=== PATIENT | male | born 1975 | race Two or more races ===

== ENCOUNTER 2018-06-10 08:54 | Emergency (ER) | payer BC ==
[2018-06-10] MEDS ORDERED: Sulfamethoxazole/Trimethoprim 800-160 MG Tab PO ONE (09:18)
[2018-06-10] MEDS ORDERED: Lidocaine 1% with EPINEPHrine 1:100,000 20 ML MDV INJECT ONE (09:18)
--- NOTE | 2018-06-10 09:24 | EDM.PDOC ---
ED HPI GENERAL MEDICAL PROBLEM - General Chief Complaint: Skin Complaint Stated Complaint: GROWTH ON THIGH Time Seen by Provider: 06/10/18 09:00 - History of Present Illness INITIAL COMMENTS - FREE TEXT/NARRATIVE: HISTORY AND PHYSICAL: History of present illness: The patient is a 43-year-old male with no stated medical problems who presents with complaints of a bump/growth to his left inner thigh that started about 7 days ago. He is not sure how it happened but he does admit that he does shave the hair and that area and he thought maybe he caused by shaving. He hasn't had any direct trauma to that area. He says that it is gradually increased in size and has become significantly more painful over the last 3 days. He has not noticed any drainage to the area and has no testicular pain or swelling no troubles with urination and no systemic complaints of fever chills chest pain shortness of breath abdominal pain vomiting or diarrhea. The patient says he has not manipulated the area or squeezed it. He also states to me that he has a history of having other lumpy fatty areas on his upper extremities and he was not sure what the more. He's concerned about the pain at the inner thigh is why he came in here. He is able to ambulate Review of systems: As per history of present illness and below otherwise all systems reviewed and negative. Past medical history: As per history of present illness and as reviewed below otherwise noncontributory. Surgical history: As per history of present illness and as reviewed below otherwise noncontributory. Social history: No reported history of drug or alcohol abuse. Family history: As per history of present illness and as reviewed below otherwise noncontributory. Physical exam: General: Well-developed well-nourished man who is nontoxic and vital signs were noted by me HEENT: Atraumatic, normocephalic, negative for conjunctival pallor or scleral icterus, mucous membranes moist, throat clear, neck supple, nontender, trachea midline. Lungs: Clear to auscultation, breath sounds equal bilaterally, chest nontender. Heart: S1S2, regular rate and rhythm no murmurs Abdomen: Soft, nondistended, nontender. Negative for masses or hepatosplenomegaly. NABS Pelvis: Stable nontender. Genitourinary: Testicles are descended bilaterally and there is no evidence of any erythema or swelling of the scrotal skin and there is no erythema or fluctuance or crepitance of the perineal area. At the left inner thigh there is a 3.5 x 3.5 area of hard induration with a central raised area of fluctuance that is 2 x 2.5 centimeter oval area. There is ill-defined erythema in this area that extends beyond the induration in the fluctuance down the inner thigh but it does not extend up into the perineum. There is only shoddy inguinal adenopathy. There is tenderness in this region but the compartment is soft and the patient can range of motion Rectal: Deferred. Extremities: Atraumatic, negative for cords or calf pain. Neurovascular unremarkable. On the patient's upper extremities there are several fatty lipomas appreciated that are mobile and exist in the subcutaneous tissue and are not tender not erythematous Neuro: Awake, alert, oriented. Cranial nerves II through XII unremarkable. Cerebellum unremarkable. Motor and sensory unremarkable throughout. Exam nonfocal. Diagnostics: None Therapeutics: Bactrim, lidocaine with epinephrine for incision and drainage Procedure note: After the procedure was explained to the patient the patient was positioned in the area was prepped and draped and 1% lidocaine with epinephrine was infused. Using a #11 blade an incision was made and thin pus mixed with blood emerged as well as some thicker pus with foul order. There was no loculations when the abscess cavity was probed with a hemostat and Iodoform gauze was packed into the wound ; the patient tolerated the procedure well with no complications. He is aware that he needs to return to have the gauze removed in 24-36 hours Impression: Left inner thigh abscess Definitive disposition and diagnosis as appropriate pending reevaluation and review of above. left inner thigh Pain Score (Numeric/FACES): 7 - Related Data Allergies Allergy/AdvReac Type Severity Reaction Status Date / Time Penicillins Allergy Severe Hives Verified 06/10/18 09:07 Home Meds: Home Meds . [No Known Home Meds] 08/22/13 [History] Past Medical History - Past Health History Medical/Surgical History: Denies Medical/Surgical History Musculoskeletal History: Reports: Other (See Below) Other Musculoskeletal History: ACL repair left side - Infectious Disease History Infectious Disease History: Reports: Chicken Pox Social & Family History - Family History Family Medical History: Noncontributory - Tobacco Use Smoking Status *Q: Light Tobacco Smoker Years of Tobacco use: 20 Packs/Tins Daily: 0.2 - Caffeine Use Caffeine Use: Reports: Coffee - Recreational Drug Use Recreational Drug Use: No ED ROS GENERAL - Review of Systems Review Of Systems: ROS reveals no pertinent complaints other than HPI. ED EXAM, SKIN/RASH Exam: See Below (See dictation) Course - Vital Signs Last Recorded V/S: Last Vital Signs Temp 36.2 C 06/10/18 09:00 Pulse 72 06/10/18 09:00 Resp 18 06/10/18 09:00 BP 133/75 06/10/18 09:00 Pulse Ox 98 06/10/18 09:00 - Orders/Labs/Meds Meds: Medications Discontinued Medications Generic Name Dose Route Start Last Admin Trade Name Norma PRN Reason Stop Dose Admin Lidocaine/Epinephrine 20 ml 06/10/18 09:18 06/10/18 09:25 Xylocaine 1% With Epinephrine 1:100,000 INJECT 06/10/18 09:19 20 ml ONETIME ONE Administration Trimethoprim/Sulfamethoxazole 1 tab 06/10/18 09:18 06/10/18 09:25 Septra Ds PO 06/10/18 09:19 1 tab ONETIME ONE Administration Departure - Departure Time of Disposition: 09:49 Disposition: Home, Self-Care 01 Condition: Good Clinical Impression: Abscess - Discharge Information Referrals: PCP,Unknown [Primary Care Provider] - Forms: ED Department Discharge Additional Instructions: The following information is given to patients seen in the emergency department who are being discharged to home. This information is to outline your options for follow-up care. We provide all patients seen in our emergency department with a follow-up referral. The need for follow-up, as well as the timing and circumstances, are variable depending upon the specifics of your emergency department visit. If you don't have a primary care physician on staff, we will provide you with a referral. We always advise you to contact your personal physician following an emergency department visit to inform them of the circumstance of the visit and for follow-up with them and/or the need for any referrals to a consulting specialist. The emergency department will also refer you to a specialist when appropriate. This referral assures that you have the opportunity for followup care with a specialist. All of these measure are taken in an effort to provide you with optimal care, which includes your followup. Under all circumstances we always encourage you to contact your private physician who remains a resource for coordinating your care. When calling for followup care, please make the office aware that this follow-up is from your recent emergency room visit. If for any reason you are refused follow-up, please contact the [facility] emergency department at and ask to speak to the emergency department charge nurse. [facility] Primary care- Internal Medicine and Family [address] [address] Take antibiotics as directed and use [id number] Tylenol or ibuprofen for pain and take the stronger pain medication as needed and as directed. Please return to ER in 24-36 hours to have iodoform pack removed and the wound reevaluated for repacking and further care. Please also schedule a follow-up appointment in our clinic for further care and evaluation. Please do not manipulate the area or remove the pack at home. Please take care not to pull the pack out accidentally. You have been given Bactrim and Tylenol with Codeine sent to [facility]
== END 2018-06-10 09:58 | disposition home or self-care (01) ==
LOC: MW.ED 08:54
DX: L02.416 Cutaneous abscess of left lower limb (principal); F17.210 Nicotine dependence, cigarettes, uncomplicated; Z88.0 Allergy status to penicillin
CPT/HCPCS: 10060; 99282; A9270

== ENCOUNTER 2018-06-11 10:42 | Emergency (ER) | payer BC ==
--- NOTE | 2018-06-11 11:11 | EDM.PDOC ---
ED HPI GENERAL MEDICAL PROBLEM - General Chief Complaint: Wound Recheck Stated Complaint: FOLLOW UP Time Seen by Provider: 06/11/18 10:50 - History of Present Illness INITIAL COMMENTS - FREE TEXT/NARRATIVE: HISTORY AND PHYSICAL: History of present illness: The patient is a healthy 43-year-old male who presents for recheck of an abscess that I drained yesterday. The patient says he is doing well and there has been drainage yesterday from the area but that has eased off. He is taking his antibiotics and feels that things are improving. Review of systems: As per history of present illness and below otherwise all systems reviewed and negative. Past medical history: As per history of present illness and as reviewed below otherwise noncontributory. Surgical history: As per history of present illness and as reviewed below otherwise noncontributory. Social history: No reported history of drug or alcohol abuse. Family history: As per history of present illness and as reviewed below otherwise noncontributory. Physical exam: HEENT: Atraumatic, normocephalic, negative for conjunctival pallor or scleral icterus, mucous membranes moist, throat clear, neck supple, nontender, trachea midline. Lungs: Deferred Cardiac deferred Abdomen: Soft, nondistended, nontender. Pelvis: Deferred Genitourinary: Deferred. Rectal: Deferred. Extremities: Atraumatic, range of motion without defects or deficits. At the left inner thigh the area of erythema that was marked yesterday has not expanded and the packing is seen. There is minimal drainage on the dressing. The iodoform pack was removed by me without complication. Neurovascular unremarkable. Neuro: Awake, alert, oriented. Cranial nerves II through XII unremarkable. Cerebellum unremarkable. Motor and sensory unremarkable throughout. Exam nonfocal. Diagnostics: [] Therapeutics: [] I removed the iodoform pack without complication and explored to the base and cavity of the abscess. It is clean and dry without any areas of fluctuance. I discussed with the patient irrigating this at home and keeping the area clean and we will not repack it. He says he is driving home to [place] in a day or so and advised him to get it followed up there. Impression: Abscess recheck, pack removal Definitive disposition and diagnosis as appropriate pending reevaluation and review of above. - Related Data Allergies Allergy/AdvReac Type Severity Reaction Status Date / Time Penicillins Allergy Severe Hives Verified 06/11/18 10:57 Home Meds: Home Meds Acetaminophen with Codeine [Tylenol with Codeine #3 Tablet] 1 each PO QID PRN # 14 tablet 06/10/18 [Rx] Sulfamethoxazole/Trimethoprim [Bactrim Ds Tablet] 1 each PO BID #20 tablet 06/10 [Rx] Past Medical History - Past Health History Medical/Surgical History: Denies Medical/Surgical History HEENT History: Reports: None Cardiovascular History: Reports: None Respiratory History: Reports: None Gastrointestinal History: Reports: None Genitourinary History: Reports: None Musculoskeletal History: Reports: Other (See Below) Other Musculoskeletal History: ACL repair left side Neurological History: Reports: None Psychiatric History: Reports: None Endocrine/Metabolic History: Reports: None Hematologic History: Reports: None Immunologic History: Reports: None Oncologic (Cancer) History: Reports: None Dermatologic History: Reports: None - Infectious Disease History Infectious Disease History: Reports: Chicken Pox - Past Surgical History Head Surgeries/Procedures: Reports: None HEENT Surgical History: Reports: None Cardiovascular Surgical History: Reports: None Respiratory Surgical History: Reports: None GI Surgical History: Reports: None Male Surgical History: Reports: None Endocrine Surgical History: Reports: None Neurological Surgical History: Reports: None Musculoskeletal Surgical History: Reports: None Oncologic Surgical History: Reports: None Dermatological Surgical History: Reports: None Social & Family History - Family History Family Medical History: Noncontributory - Tobacco Use Smoking Status *Q: Current Every Day Smoker Years of Tobacco use: 20 Packs/Tins Daily: 0.1 - Caffeine Use Caffeine Use: Reports: None - Recreational Drug Use Recreational Drug Use: No ED ROS GENERAL - Review of Systems Review Of Systems: ROS reveals no pertinent complaints other than HPI. ED EXAM, GENERAL - Physical Exam Exam: See Below (See dictation) Course - Vital Signs Last Recorded V/S: Last Vital Signs Temp 35.4 C 06/11/18 10:55 Pulse 68 06/11/18 10:55 Resp 18 06/11/18 10:55 BP 123/72 06/11/18 10:55 Pulse Ox 98 06/11/18 10:55 Departure - Departure Time of Disposition: 11:10 Disposition: Home, Self-Care 01 Condition: Good Clinical Impression: Abscess re-check - Discharge Information Referrals: PCP,Unknown [Primary Care Provider] - Additional Instructions: The following information is given to patients seen in the emergency department who are being discharged to home. This information is to outline your options for follow-up care. We provide all patients seen in our emergency department with a follow-up referral. The need for follow-up, as well as the timing and circumstances, are variable depending upon the specifics of your emergency department visit. If you don't have a primary care physician on staff, we will provide you with a referral. We always advise you to contact your personal physician following an emergency department visit to inform them of the circumstance of the visit and for follow-up with them and/or the need for any referrals to a consulting specialist. The emergency department will also refer you to a specialist when appropriate. This referral assures that you have the opportunity for followup care with a specialist. All of these measure are taken in an effort to provide you with optimal care, which includes your followup. Under all circumstances we always encourage you to contact your private physician who remains a resource for coordinating your care. When calling for followup care, please make the office aware that this follow-up is from your recent emergency room visit. If for any reason you are refused follow-up, please contact the [facility] emergency department at and ask to speak to the emergency department charge nurse. [facility] Primary care- Internal Medicine and Family [address] [address] Irrigate the wound twice a day as we discussed to keep it open and clean and try to keep it open to air as much as possible. There still may be some drainage of some make sure to place a dressing on it when you cannot be at home. Continue and finish the antibiotics were given yesterday and use pain meds as you choose. Return to ER as needed and as discussed and schedule a follow-up appointment with your provider back home in [place] one of ours in the clinic in the next few days for reevaluation.
== END 2018-06-11 11:30 | disposition home or self-care (01) ==
LOC: MW.ED 10:42
DX: L02.416 Cutaneous abscess of left lower limb (principal); Z88.0 Allergy status to penicillin; F17.210 Nicotine dependence, cigarettes, uncomplicated
CPT/HCPCS: 99282